=== PATIENT | male | born 1950 ===

== ENCOUNTER → 2020-12-23 | Outpatient (CLI) | payer BC ==
[~2020-12-23] MED LIST: ATEN25; Aspirin EC81 MG; Bystolic10 MG PO; Citrucel500 MG; IBUP600; Multiple Vitam1 EAC1 PO; POTCIT10 PO; PROBIOTIC1 EAC1 PO; ROSU10TA PO; Zanaflex6 MG PO
== END ==
LOC: LAB SHORT 12:12 → LAB 12:12
DX: D48.5 Neoplasm of uncertain behavior of skin (principal); D23.61 Other benign neoplasm of skin of right upper limb, including shoulder; D22.61 Melanocytic nevi of right upper limb, including shoulder; Z88.5 Allergy status to narcotic agent; Z88.8 Allergy status to other drugs, medicaments and biological substances
CPT/HCPCS: 88305